=== PATIENT | female | born 1935 | race Caucasian/White ===

== ENCOUNTER 2017-02-23 20:54 | Emergency (ER) | payer MEDICARE, BC ==
[2017-02-23 21:05] VITALS: BP 101/73
== END 2017-02-24 | disposition left against medical advice (07) ==
LOC: ED 20:54
DX: R07.9 Chest pain, unspecified (principal); Z53.21 Procedure and treatment not carried out due to patient leaving prior to being seen by health care provider

== ENCOUNTER 2017-03-13 16:43 | Emergency (ER) | payer MEDICARE, BC ==
[2017-03-13 18:55] LABS: Hematocrit 38 % (35-47); Hemoglobin 12.3 g/dl (12.0-16.0); Mean Corpuscular HGB Conc 33 g/dl (31-36); Mean Corpuscular Hemoglobin 27 pg (27-31); Mean Corpuscular Volume 83 fL (80-97); Mean Platelet Volume 8 um3 (7.4-10.4); Red Cell Distribution Width 16 % (10.5-15); White Blood Count 6.7 10^3/ul (3.5-10.8)
[2017-03-13 19:10] LABS: Troponin I 0.01 ng/mL (<0.04)
[2017-03-13 19:11] LABS: Albumin 3.5 g/dL (3.2-5.2); BUN/Creatinine Ratio 10.6 (8-20); EGFR African American 59.7 (>60); EGFR Non-African American 46.4 (>60); Globulin 2.6 g/dL (2-4); Magnesium 2.3 mg/dL (1.9-2.7); Potassium 3.8 mmol/L (3.5-5.0); Total Bilirubin 0.5 mg/dL (0.2-1.0); Total Protein 6.1 g/dL (6.4-8.9)
[2017-03-13 19:46] LABS: TSH (Thyroid Stimulating Horm) 1.48 mcIU/mL (0.34-5.60)
[2017-03-13 20:40] VITALS: BP 135/65
--- NOTE | 2017-03-13 22:57 | ED ---
Fly Lares Alfonso, scribed for Janes Ruiz MD on 03/13/17 at 1929 . Syncope/Near Syncope - HPI Summary HPI Summary: This patient is a 62 year old F presenting to [facility] accompanied by with a chief complaint of syncope that occurred today. The patients reports that the pt was taking a shower and when he entered the bathroom he found her leaning against the sink and hanging on for her life. The patient was unable to sit on the toilet and reportedly rolled her eyes to the back of her head. The patient rates the pain 0/10 in severity. Symptoms aggravated by nothing. Symptoms alleviated by spontaneous resolution. Patients reports her inability to stand. The patient denies abdominal pain and the patients denies observing any physical trauma or pain. - History Of Current Complaint Chief Complaint: EDSyncope Time Seen by Provider: 03/13/17 17:51 Hx Obtained From: Patient, Family/[employer] - Onset/Duration: Sudden Onset, Resolved Context: Witnessed, Loss Of Consciousness Activity At Onset: Other - Unconscious Associated Head Trauma: No Aggravating Factor(s): Nothing Alleviating Factor(s): Spontaneous Resolution Associated Signs And Symptoms: Other - Patients reports her inability to stand and usual poor memory. The patient denies abdominal pain and the patients denies observing any physical trauma or pain. - Allergies/Home Medications Allergies/Adverse Reactions: Allergies Allergy/AdvReac Type Severity Reaction Status Date / Time Amlodipine [From Norvasc] Allergy Unknown Flushing Verified 02/23/17 21:03 Atorvastatin [From Lipitor] Allergy Unknown Muscle Ache Verified 02/23/17 21:03 Hydrochlorothiazide Allergy Unknown See Comment Verified 02/23/17 21:03 Labetalol Allergy Unknown Unknown Verified 02/23/17 21:03 Reaction Details Niacin Allergy Unknown Dizziness Verified 02/23/17 21:03 Penicillins [PCN] Allergy Unknown Unknown Verified 02/23/17 21:03 Reaction Details Simvastatin [From Zocor] Allergy Unknown See Comment Verified 02/23/17 21:03 bactrim ds Allergy Unknown Unknown Uncoded 02/23/17 21:03 Reaction Details PMH/Surg Hx/FS Hx/Imm Hx Endocrine/Hematology History: Reports: Hx Thyroid Disease Cardiovascular History: Reports: Hx Coronary Artery Disease - CHOLESTEROL CONTROL WITH MEDICATION, Hx Hypercholesterolemia, Hx Hypertension GI History: Reports: Hx Gastroesophageal Reflux Disease - ON MEDICATION, Hx Hiatal Hernia, Other GI Disorders - HISTORY OF CONSTIPATION, TAKING METAMUSCIL Musculoskeletal History: Reports: Hx Arthritis - OSTEOARTHRITIS RIGHT HIP Sensory History: Reports: Hx Cataracts, Hx Contacts or Glasses - READING GLASSES Denies: Hx Hearing Aid Opthamlomology History: Reports: Hx Cataracts, Hx Contacts or Glasses - READING GLASSES Neurological History: Reports: Other Neuro Impairments/Disorders - short term memory issues from premarin cream - Cancer History Hx Chemotherapy: - BILATERAL - Surgical History Surgery Procedure, Year, and Place: 2002 PROLAPSE BLADDER REPAIR, [facility] [place]. 2003 CATARACT SURGERY WITH IOL IMPLANT, [facility] [place]. TONSILLECTOMY A CHILD Hx Anesthesia Reactions: No Infectious Disease History: No Infectious Disease History: Denies: Traveled Outside the [place] in Last 30 Days - Family History Known Family History: Positive: Other - Father had CAD, Mother had Cancer - Social History Alcohol Use: None Substance Use Type: Reports: None Smoking Status (MU): Never Smoked Tobacco Review of Systems Negative: Fever Negative: Abdominal Pain Positive: Other - Unable to stand, negative physical trauma Neurological: Other - Poor memory (baseline) Positive: Syncope All Other Systems Reviewed And Are Negative: Yes Physical Exam - Summary Physical Exam Summary: Appearance: Well-appearing, no pain distress Skin: Warm, dry, color reflects adequate perfusion Head/face: Nml head/face Eyes: Nml eyes ENT: Nml ENT Neck: Supple, non-tender Respiratory: CTA, breath sound present Cardiovascular: RRR Abdomen: Abd soft, non-tender, Bowel: Bowel sounds present Musculoskeletal: Nml musculoskeletal Neurological: Nml neuro, sensory/motor intact, A&Ox3, CN Intact II-III Psychiatric: Nml psychiatric, affect/mood appropriate Triage Information Reviewed: Yes Vital Signs On Initial Exam: Initial Vitals Temp Pulse Resp BP Pulse Ox 97.9 F 62 17 116/68 98 03/13/17 16:48 03/13/17 16:48 03/13/17 16:48 03/13/17 16:48 03/13/17 16:48 Vital Signs Reviewed: Yes - [place] Coma Scale Coma Scale Total: 15 Diagnostics - Vital Signs Vital Signs Temp Pulse Resp BP Pulse Ox 03/13/17 18:20 98 03/13/17 18:18 5 03/13/17 16:48 97.9 F 62 17 116/68 98 - Laboratory Lab Results: Lab Results 03/13/17 03/13/17 03/13/17 Range/Units 18:43 18:43 18:43 WBC 6.7 (3.5-10.8) 10^3/ul RBC 4.60 (4.0-5.4) 10^6/ul Hgb 12.3 (12.0-16.0) g/dl Hct 38 (35-47) % MCV 83 (80-97) fL MCH 27 (27-31) pg MCHC 33 (31-36) g/dl RDW 16 H (10.5-15) % Plt Count 195 (150-450) 10^3/ul MPV 8 (7.4-10.4) um3 Neut % (Auto) 73.0 (38-83) % Lymph % (Auto) 20.0 L (25-47) % [place] % (Auto) 5.3 (1-9) % Eos % (Auto) 1.1 (0-6) % Baso % (Auto) 0.6 (0-2) % Absolute Neuts (auto) 4.9 (1.5-7.7) 10^3/ul Absolute Lymphs (auto) 1.3 (1.0-4.8) 10^3/ul Absolute Monos (auto) 0.4 (0-0.8) 10^3/ul Absolute Eos (auto) 0.1 (0-0.6) 10^3/ul Absolute Basos (auto) 0 (0-0.2) 10^3/ul Absolute Nucleated RBC 0.01 10^3/ul Nucleated RBC % 0.1 Sodium 139 (133-145) mmol/L Potassium 3.8 (3.5-5.0) mmol/L Chloride 109 (101-111) mmol/L Carbon Dioxide 23 (22-32) mmol/L Anion Gap 7 (2-11) mmol/L BUN 12 (6-24) mg/dL Creatinine 1.13 H (0.51-0.95) mg/dL Est GFR ( Amer) 59.7 (>60) Est GFR (Non-Af Amer) 46.4 (>60) BUN/Creatinine Ratio 10.6 (8-20) Glucose 95 (70-100) mg/dL Lactic Acid 1.3 (0.5-2.0) mmol/L Calcium 9.0 (8.6-10.3) mg/dL Magnesium 2.3 (1.9-2.7) mg/dL Total Bilirubin 0.50 (0.2-1.0) mg/dL AST 12 L (13-39) U/L ALT 16 (7-52) U/L Alkaline Phosphatase 98 (34-104) U/L Troponin I 0.01 (<0.04) ng/mL Total Protein 6.1 L (6.4-8.9) g/dL Albumin 3.5 (3.2-5.2) g/dL Globulin 2.6 (2-4) g/dL Albumin/Globulin Ratio 1.3 (1-3) TSH Pending Result Diagrams: 03/13/17 18:43 03/13/17 18:43 Lab Statement: Any lab studies that have been ordered have been reviewed, and results considered in the medical decision making process. - EKG 1859 Cardiac Rate: Bradycardia - 56 bpm EKG Rhythm: Sinus Bradycardia EKG Interpretation: NAC Course/Dx Course Of Treatment: Ms. Villa presented after what sounded like a vagal ssyncopal event after a shower. She felt fine here and was monitored while her labs were checked. Everything was normal and they elected to go home rather than stay the night on a monitored bed. - Diagnoses Provider Diagnoses: Vasovagal syncope Discharge - Discharge Plan Condition: Stable Disposition: HOME Patient Education Materials: Syncope (ED) Referrals: Rene Correia MD [Primary Care Provider] - 3 Days Additional Instructions: RETURN TO THE EMERGENCY DEPARTMENT FOR CHANGING OR WORSENING SYMPTOMS. The documentation as recorded by the Fly birch Alfonso accurately reflects the service I personally performed and the decisions made by me, Janes Ruiz MD.
== END 2017-03-13 20:50 | disposition home or self-care (01) ==
LOC: ED 16:43
DX: R55 Syncope and collapse (principal); E07.9 Disorder of thyroid, unspecified; I25.10 Atherosclerotic heart disease of native coronary artery without angina pectoris; I10 Essential (primary) hypertension; K21.9 Gastro-esophageal reflux disease without esophagitis
CPT/HCPCS: 36415; 80053; 83605; 83735; 84443; 84484; 85025; 93005

== ENCOUNTER 2018-05-26 21:33 | Observation (INO) | payer MEDICARE, BC ==
[2018-05-26] MEDS ORDERED: NS 0.9% 1000 ML** 1,000 ML IV.FLUID IV ONE (22:04)
[2018-05-26] MEDS ORDERED: Acetaminophen TAB* 325 MG PO ONE (22:05)
--- NOTE | 2018-05-26 22:14 | ED ---
Complex/Multi-Sys Presentation - HPI Summary HPI Summary: This patient is an 82 year old F brought in by ambulance to [facility] accompanied by family with a chief complaint of weakness that began this morning. The patient rates the pain 0/10 in severity. Symptoms aggravated by nothing. Symptoms alleviated by nothing. Per family, patient has baseline confusion due to dementia. Per family, patient has also fallen on her right side prior to arrival. - History Of Current Complaint Chief Complaint: EDWeakness Time Seen by Provider: 05/26/18 21:36 Hx Obtained From: Patient Onset/Duration: Sudden Onset, Lasting Hours, Still Present Timing: Constant Severity Currently: Mild Severity Initially: Mild Aggravating Factor(s): Nothing Alleviating Factor(s): Nothing - Allergies/Home Medications Allergies/Adverse Reactions: Allergies Allergy/AdvReac Type Severity Reaction Status Date / Time amlodipine [From Norvasc] Allergy Flushing Verified 05/26/18 22:57 atorvastatin [From Lipitor] Allergy Muscle Ache Verified 05/26/18 22:57 hydrochlorothiazide Allergy See Comment Verified 05/26/18 22:57 labetalol Allergy Unknown Verified 05/26/18 22:57 Reaction Details niacin Allergy Dizziness Verified 05/26/18 22:57 Penicillins Allergy Unknown Verified 05/26/18 22:57 Reaction Details simvastatin [From Zocor] Allergy See Comment Verified 05/26/18 22:57 bactrim ds Allergy Unknown Unknown Uncoded 05/26/18 22:57 Reaction Details Home Medications: Home Medications Aspirin [Aspirin Childrens 81 MG] 81 mg PO DAILY 05/26/18 [History Confirmed 02/03] Donepezil TAB* [Aricept 5 MG TAB*] 10 mg PO DAILY 05/26/18 [History Confirmed ] Esomeprazole Magnesium [Nexium 24Hr] 20 mg PO DAILY 05/26/18 [History Confirmed 05/26/18] Levothyroxine Sodium 75 mcg PO DAILY 05/26/18 [History Confirmed 05/26/18] Memantine HCl [Memantine HCl ER] 28 mg PO DAILY 05/26/18 [History Confirmed 02/03] Polyethylene Glycol 3350 [Miralax] 17 gm PO DAILY 05/26/18 [History Confirmed ] Rosuvastatin Calcium [Crestor] 5 mg PO DAILY 05/26/18 [History Confirmed ] Telmisartan 80 mg PO DAILY 05/26/18 [History Confirmed 05/26/18] hydrALAZINE TAB* [Apresoline TAB*] 25 mg PO TID 05/26/18 [History Confirmed 02/03] PMH/Surg Hx/FS Hx/Imm Hx Previously Healthy: No Endocrine/Hematology History: Reports: Hx Thyroid Disease Cardiovascular History: Reports: Hx Coronary Artery Disease - CHOLESTEROL CONTROL WITH MEDICATION, Hx Hypercholesterolemia, Hx Hypertension GI History: Reports: Hx Gastroesophageal Reflux Disease - ON MEDICATION, Hx Hiatal Hernia, Other GI Disorders - HISTORY OF CONSTIPATION, TAKING METAMUSCIL Musculoskeletal History: Reports: Hx Arthritis - OSTEOARTHRITIS RIGHT HIP Sensory History: Reports: Hx Cataracts, Hx Contacts or Glasses - READING GLASSES Denies: Hx Hearing Aid Opthamlomology History: Reports: Hx Cataracts, Hx Contacts or Glasses - READING GLASSES Neurological History: Reports: Other Neuro Impairments/Disorders - short term memory issues from premarin cream - Cancer History Hx Chemotherapy: - BILATERAL - Surgical History Surgery Procedure, Year, and Place: 2002 PROLAPSE BLADDER REPAIR, [facility] [place]. 2002 CATARACT SURGERY WITH IOL IMPLANT, [facility] [place]. TONSILLECTOMY A CHILD Hx Anesthesia Reactions: No Infectious Disease History: No Infectious Disease History: Denies: Traveled Outside the [place] in Last 30 Days - Family History Known Family History: Positive: Other - Father had CAD, Mother had Cancer - Social History Occupation: Retired Lives: With Family Alcohol Use: None Hx Substance Use: No Substance Use Type: Reports: None Hx Tobacco Use: No Smoking Status (MU): Never Smoked Tobacco Review of Systems Negative: Abdominal Pain Positive: Weakness All Other Systems Reviewed And Are Negative: Yes Physical Exam - Summary Physical Exam Summary: VITAL SIGNS: Reviewed. GENERAL: Patient is a well-developed and nourished female who is lying comfortable in the stretcher. Patient is not in any acute respiratory distress. HEAD AND FACE: No signs of trauma. No ecchymosis, hematomas or skull depressions. No sinus tenderness. EYES: PERRLA, EOMI x 2, No injected conjunctiva, no nystagmus. EARS: Hearing grossly intact. Ear canals and tympanic membranes are within normal limits. MOUTH: Oropharynx within normal limits. NECK: Supple, trachea is midline, no adenopathy, no JVD, no carotid bruit, no c- spine tenderness, neck with full ROM. CHEST: Symmetric, no tenderness at palpation LUNGS: Clear to auscultation bilaterally. No wheezing or crackles. CVS: Regular rate and rhythm, S1 and S2 present, no murmurs or gallops appreciated. ABDOMEN: Soft, non-tender. No signs of distention. No rebound no guarding, and no masses palpated. Bowel sounds are normal. EXTREMITIES: FROM in all major joints, no edema, no cyanosis or clubbing. NEURO: Alert, not answering questions. Doesnt follow exams. Grossly nonfocal SKIN: Dry and warm Triage Information Reviewed: Yes Vital Signs On Initial Exam: Initial Vitals Temp Pulse Resp BP Pulse Ox 100.4 F 95 16 134/68 94 05/26/18 21:40 05/26/18 21:40 05/26/18 21:40 05/26/18 21:40 05/26/18 21:40 Vital Signs Reviewed: Yes Diagnostics - Vital Signs Vital Signs Temp Pulse Resp BP Pulse Ox 05/26/18 22:00 97 19 93 05/26/18 21:43 98 20 134/68 94 05/26/18 21:40 100.4 F 102 23 134/68 96 - Laboratory Result Diagrams: 05/26/18 21:32 05/26/18 21:32 Lab Statement: Any lab studies that have been ordered have been reviewed, and results considered in the medical decision making process. - Radiology Chest XR Radiology Interpretation Completed By: ED Physician Summary of Radiographic Findings: CXR reveals, per ED physician, no acute process. - EKG 2251 Cardiac Rate: NL EKG Rhythm: Sinus Rhythm - 98 BPM Summary of EKG Findings: An EKG taken at 2251 reveals normal sinus rhythm at 98 BPM with normal axis, normal intervals, and no ischemic changes. Re-Evaluation - Re-Evaluation First Eval Re-Evaluation Time: 23:09 Change: Unchanged Comment: Discussed results and plan of care with patient and family. The patient s communicated that she was not able to get out of the car at 1700 today, and the patient was weak and fell onto her right side out of a chair. Complex Multi-Symp Course/Dx Course Of Treatment: This patient is an 82 year old F brought in by ambulance to [facility] accompanied by family with a chief complaint of weakness that began this morning. Physical Exam Findings: Alert, not answering questions. Doesnt follow exams. Grossly nonfocal. An EKG taken at 2251 reveals normal sinus rhythm at 98 BPM with normal axis, normal intervals, and no ischemic changes. CXR reveals, per ED physician, no acute process. Bloodwork and UA obtained. In the ED course the patient was given acetaminophen, levofloxacin, and fluids. Consult with Dr. Prince (hospitalist) at 2310. He agrees to admit the patient for further evaluation. The patient is agreeable with this plan. - Diagnoses Provider Diagnoses: UTI (urinary tract infection) - Physician Notifications Discussed Care Of Patient With: Mirza Prince Time Discussed With Above Provider: 23:10 Instructed by Provider To: Other - Consult with Dr. Prince (hospitalist) at 2310. He agrees to admit the patient for further evaluation. Discharge - Sign-Out/Discharge Documenting (check all that apply): Patient Departure - Admit to [facility] [place] - Discharge Plan Condition: Stable Disposition: ADMITTED TO [facility] - Attestation Statements Document Initiated by Scribe: Yes Documenting Scribe: Marlene Baig Provider For Whom Ehsan is Documenting (Include Credential): Dr. Pushpa Baires MD Scribe Attestation: I, Marlene Baig, scribed for Dr. Pushpa Baires MD on 05/26/18 at 2315. Status of Scribe Document: Ready
[2018-05-26 22:32] LABS: ABS Basophils 0 10^3/ul (0-0.2); ABS Eosinophils 0 10^3/ul (0-0.6); ABS Lymphocytes 0.5 10^3/ul (1.0-4.8); ABS Monocytes 0.4 10^3/ul (0-0.8); ABS Neutrophils 6.4 10^3/ul (1.5-7.7); ABS Nucleated RBC 0 10^3/ul; Eosinophil % 0.1 %; Hematocrit 39 % (35-47); Hemoglobin 12.5 g/dl (12.0-16.0); Lymphocyte % 6.5 %; Mean Corpuscular HGB Conc 32 g/dl (31-36); Mean Corpuscular Hemoglobin 27 pg (27-31); Mean Corpuscular Volume 82 fL (80-97); Mean Platelet Volume 7.9 fL (7.4-10.4); Nucleated Red Blood Cells % 0.1; Platelet Count 215 10^3/ul (150-450); Red Blood Count 4.73 10^6/ul (4.00-5.40); Red Cell Distribution Width 16 % (10.5-15); White Blood Count 7.3 10^3/ul (3.5-10.8)
[2018-05-26 22:41] LABS: Activated Partial Thrombo Time 27.7 seconds (26.0-36.3); INR 0.96 (0.77-1.02)
[2018-05-26 22:50] LABS: Albumin 4.1 g/dL (3.2-5.2); Albumin/Globulin Ratio 1.8 (1-3); BUN/Creatinine Ratio 14.5 (8-20); C Reactive Protein 9.63 mg/L (<8.01); Calcium 9.3 mg/dL (8.6-10.3); EGFR African American 53.9 (>60); EGFR Non-African American 44.5 (>60); Globulin 2.3 g/dL (2-4); Potassium 4.2 mmol/L (3.5-5.0); Total Bilirubin 0.5 mg/dL (0.2-1.0); Total Protein 6.4 g/dL (6.4-8.9)
[2018-05-26 22:52] LABS: Troponin I 0.01 ng/mL (<0.04)
[2018-05-26 23:04] LABS: Urine Appearance Cloudy; Urine Bacteria 1+ (Absent); Urine Bilirubin Negative (Negative); Urine Blood Negative (Negative); Urine Color Amber; Urine Glucose Negative (Negative); Urine Ketones Negative (Negative); Urine Nitrite Negative (Negative); Urine Protein 1+(30 mg/dL) (Negative); Urine Red Blood Cell Trace(0-2/hpf) (Absent); Urine Specific Gravity 1.021 (1.010-1.030); Urine Urobilinogen Positive (Negative); Urine White Blood Cell 1+(6-10/hpf) (Absent)
[2018-05-26] MEDS ORDERED: Levofloxacin 500 MG IVPREMIX(* 500 MG/100 ML BAG IVPB ONE (23:06)
[2018-05-26 23:12] LABS: Influenza A Molecular NEGATIVE (Negative); Influenza B Molecular NEGATIVE (Negative)
[2018-05-27 00:58] LABS: TSH (Thyroid Stimulating Horm) 0.57 mcIU/mL (0.34-5.60)
[2018-05-27] MEDS ORDERED: cefTRIAXone VIAL(*) 500 MG in NS 0.9% 50 ML* 50 ML IVPB SCH (02:00)
[2018-05-27] MEDS ORDERED: Levothyroxine TAB* 75 MCG TAB PO SCH (06:00)
--- NOTE | 2018-05-27 06:31 | HP ---
HISTORY AND PHYSICAL: DATE OF ADMISSION: 05/26/18 ADMITTING PROVIDER: Mirza Prince MD. PRIMARY CARE PROVIDER: Rene Correia MD. OUTPATIENT PRECISION HONER: Dr. Frazier. OUTPATIENT NEUROLOGIST: Dr. Bruner. CHIEF COMPLAINT: Fall, generalized weakness, fevers, and urinary incontinence. HISTORY OF PRESENT ILLNESS: Bonifacio Villa is an 82-year-old female with past medical history of Alzheimer's dementia, myocardial infarction, hypertension, hypothyroidism, who the day of admission missed her 2-hour usual afternoon nap and at 5 p.m. was unable to get out of the car unassisted. She had also been incontinent of urine near the bed, which is very unusual for her. Her Joce had to help her to walk on occasion. She then was sitting in a chair and eventually fell over to the side out of the chair. She then, with some assistance from Joce, went to the rest room and was found to be incontinent of urine again. Ambulance was called. Here, she was noted to have a fever of 100.4 rectally and she had tachycardia initially to 102. Given her altered mental status and eventual urinalysis, which was slightly positive with 1+ bacteria, 1+ WBCs, she was referred to hospitalist service for admission for suspected UTI, [id number] confusion, generalized weakness and sepsis. She had a chest x-ray which preliminary read is pending, but no infiltrates noted. She is a very poor historian even at baseline, oriented only to her first name but not last name, does not know the year at baseline. There has been no cough , chest pain, shortness of breath, wheezing, headaches, neck stiffness. Flu was negative here. She was started on Levaquin in the ED. PAST MEDICAL HISTORY: Myocardial infarction, severe Alzheimer's dementia, hypertension, hypothyroidism, and left patellar fracture. ALLERGIES: AMLODIPINE (flushing), ATORVASTATIN (muscle ache), HYDROCHLOROTHIAZIDE (electrolyte disturbance ultimately causing cardiac arrest) , LABETALOL, NIACIN and PENICILLIN (unknown), BACTRIM (unknown), SIMVASTATIN ( rhabdomyolysis weakness). SOCIAL HISTORY: She is currently retired/disabled; I think formerly a nurse. Joce Villa is her medical surrogate. He desires her to be a full code. Denies current smoking, alcohol, or drug use currently. FAMILY HISTORY: Father of heart troubles. Mother of cancer of the throat and was a heavy smoker and in year 1978. REVIEW OF SYSTEMS: Complete 14-point review of systems negative as except as per HPI and limited by the patient being poor historian relying on Joce for most details. PHYSICAL EXAMINATION GENERAL APPEARANCE: No acute distress. VITAL SIGNS: Temperature 100.4, pulse rate 102, respiratory rate 16, satting 94 % on room air, blood pressure 134/68. HEENT: Normocephalic, atraumatic. Pupils equally round and reactive light. Extraocular motions intact. No scleral icterus. NECK: Supple. LUNGS: Clear to auscultation bilaterally with no wheezing, rales, or rhonchi. CARDIOVASCULAR: Regular rate and rhythm with no murmurs, rubs, or gallops. ABDOMEN: Soft, nontender, nondistended. EXTREMITIES: Warm and well perfused. No peripheral edema. NEUROLOGIC: Cranial nerves II through XII are intact. Hip flexion at least 4/ 5 bilaterally. Not following commands in terms of plantar flexion. SKIN: No lesions or rashes. DIAGNOSTIC STUDIES/LAB DATA: Labs: White count 7.3, hemoglobin 12.5, hematocrit 39, platelets 215. INR 0.96. Sodium 139, potassium 4.2, chloride 107, BUN 17, creatinine 1.17, glucose 129, lactic acid 1.6. Total bili 0.5, AST 16, ALT 11, alk phos 138. CRP 9.63, troponin 0.01. TSH 0.57. Albumin 4.1. Urinalysis 1+ protein, 1+ WBC, 1+ bacteria, negative leukocyte esterase, and negative nitrites. Influenza A and B were negative. Imaging: Chest x-ray, official read pending, but no acute process per my read. EKG, normal sinus rhythm. Inferior Q-waves in III. Poor R-wave progression. No ST elevations or depression. Normal axis. QTc 464. ASSESSMENT AND PLAN: Bonifacio Villa is an 82-year-old female, past medical history of severe Alzheimer's dementia, presenting with fever, tachycardia, acute on chronic altered mental status, urinary incontinence at home and slightly positive urinalysis suspicious for potential urinary tract infection causing systemic inflammatory response syndrome/sepsis. She is status post Levaquin in the ED. She has penicillin and Bactrim allergies. She is being admitted to observation status as she is clearly off her baseline mentally. She is usually able to ambulate upstairs without any assistive devices. Physical therapy will be ordered. We will give her ceftriaxone here. Followup urine culture. She can likely go home tomorrow after physical therapy evaluation. , Joce, is retired and is basically her 24x7 caregiver at home. I doubt that they would want to go to a fpc facility. For her hypertension, we will continue her telmisartan 80 mg daily and hydralazine 25 mg in the a.m. and at night; for her hypothyroidism, continue 75 mcg of levothyroxine; for her Alzheimer's dementia, continue Namenda and she is status post sepsis fluid bolus in the ED. Follow up blood cultures. She can eat a heart healthy diet. She is a full code. [id number] #: [id number] MTDD
[2018-05-27 07:48] LABS: ABS Basophils 0 10^3/ul (0-0.2); ABS Eosinophils 0 10^3/ul (0-0.6); ABS Lymphocytes 1.6 10^3/ul (1.0-4.8); ABS Monocytes 0.5 10^3/ul (0-0.8); ABS Neutrophils 3.7 10^3/ul (1.5-7.7); ABS Nucleated RBC 0 10^3/ul; Eosinophil % 0.5 %; Hematocrit 34 % (35-47); Hemoglobin 11.3 g/dl (12.0-16.0); Lymphocyte % 27.8 %; Mean Corpuscular HGB Conc 33 g/dl (31-36); Mean Corpuscular Hemoglobin 27 pg (27-31); Mean Corpuscular Volume 82 fL (80-97); Mean Platelet Volume 8.2 fL (7.4-10.4); Nucleated Red Blood Cells % 0; Platelet Count 161 10^3/ul (150-450); Red Cell Distribution Width 16 % (10.5-15); White Blood Count 5.8 10^3/ul (3.5-10.8)
[2018-05-27 08:29] LABS: Calcium 8.8 mg/dL (8.6-10.3); Potassium 4.1 mmol/L (3.5-5.0)
[2018-05-27 08:35] LABS: EGFR African American 64.6 (>60); EGFR Non-African American 53.3 (>60)
[2018-05-27] MEDS ORDERED: Pantoprazole TAB * 40 MG TAB PO SCH (09:00)
[2018-05-27] MEDS ORDERED: Aspirin 81 mg CHEW TAB* 81 MG TAB.CHEW PO SCH (09:00)
[2018-05-27] MEDS ORDERED: Enoxaparin(*) 40 MG/0.4 ML SYR SUBCUT SCH (09:00)
[2018-05-27] MEDS ORDERED: Memantine XR CAP* 28 MG CAP.XR PO SCH (09:00)
[2018-05-27] MEDS ORDERED: hydrALAZINE TAB* 25 MG PO SCH (09:00)
[2018-05-27] MEDS ORDERED: Donepezil TAB* 5 MG PO SCH (09:00)
[2018-05-27] MEDS ORDERED: Polyethylene Glycol 3350* 17 GM PACKET PO SCH (09:00)
[2018-05-27 13:09] VITALS: BP 131/62
[2018-05-27] MEDS: Losartan TAB* 25 MG PO SCH ×2 (13:14→13:56)
[2018-05-27] MEDS ORDERED: Ezetimibe TAB* 10 MG PO SCH (18:00)
--- NOTE | 2018-05-27 22:06 | DS ---
CC: Dr. Rene Correia * DISCHARGE SUMMARY: DATE OF ADMISSION: 05/26/18 DATE OF DISCHARGE: 05/27/18 PRIMARY CARE PROVIDER: Dr. Rene Correia. MY ATTENDING WHILE IN THE HOSPITAL: Dr. Nora Abbasi.* (DICTATED BY SOTERO PRUITT) PRIMARY DISCHARGE DIAGNOSES: 1. Urinary tract infection. 2. Increased weakness. 3. Altered mental status. SECONDARY DISCHARGE DIAGNOSES: 1. Severe Alzheimer dementia. 2. History of myocardial infarction. 3. Hypertension. 4. Hypothyroidism. STUDIES DONE WHILE IN THE HOSPITAL: Chest x-ray from 05/26/18 read as no evidence for acute disease. Electrocardiogram shows normal sinus rhythm, no ST segment changes, normal axis, no hypertrophy or enlargement, poor quality study compared to previous exam. No significant changes. MEDICATIONS AT DISCHARGE: 1. Donepezil 10 mg p.o. daily. 2. Telmisartan 80 mg p.o. daily. 3. Memantine 20 mg p.o. daily. 4. Esomeprazole 20 mg p.o. daily. 5. Aspirin 81 mg p.o. daily. 6. Hydralazine 25 mg p.o. t.i.d. 7. Levothyroxine 75 mcg p.o. daily. 8. Polyethylene glycol 17 g p.o. daily. 9. Ezetimibe 10 mg p.o. q.p.m. New Medication: Cefpodoxime 200 mg p.o. q.12 hours x12. HOSPITAL COURSE: This is a brief summary of the patient's presentation. For more details, please see history and physical from Dr. Mirza Prince on 05/26/18. In brief, patient is an 82-year-old female with severe Alzheimer dementia who was in her normal state of health when she began to act abnormally, including having urinary incontinence and weakness. She came to the emergency department and had a slight fever, slight tachycardia. The patient had slightly positive urinalysis as well. The patient met sepsis criteria, was given a bolus and ceftriaxone, and was admitted to the hospital for observation. The patient had no white count, no new anemia, a slightly elevated creatinine though consistent with the patient's baseline, negative lactic acid with slightly elevated CRP, and urine showing positive white blood cells and bacteria. The patient felt better in the morning and was able to ambulate several times to bathroom and back and then around the unit entirely with physical therapy. The patient had no other complaints or vital sign abnormalities. The patient was at her baseline cognitively. The patient did not have acute PT needs. The patient was stable enough for discharge on 05/27/18 with 24-hour care from her at home. PHYSICAL EXAM AT DISCHARGE: General: The patient is an 82-year-old female who appears her stated age and sitting comfortably in bed, in no acute distress. HEENT: Head normocephalic, atraumatic. Sclerae anicteric. No conjunctival injection. Nasal mucosa moist. Oral mucosa moist. No pharyngeal erythema, discharge, or exudate. Neck: Supple, nontender. No lymphadenopathy. No carotid bruit auscultated. No JVD. Cardiac: Regular rate and rhythm. No clicks, murmurs, gallops, or rubs. Pulses 2+ in her bilateral dorsalis pedis, posterior tibialis, and radial areas. Respiratory: Clear to auscultation bilaterally. No wheezes, rales, or rhonchi. Good air exchange bilaterally. Abdomen: Soft, nontender, nondistended. Bowel sounds present, normoactive in all 4 quadrants. No hepatosplenomegaly. No abdominal bruits auscultated. No hepatojugular reflux. Genitourinary: No suprapubic or CVA tenderness. Skin: Clean, dry, and intact. No rash. Neuro: Alert, oriented to self. No focal deficits. Psychiatric: Pleasant and cooperative. Vital Signs: At time of discharge, temperature 98.4, pulse rate 87, respiratory rate 16, oxygen saturation 96% on room air, blood pressure 131/62. DISCHARGE PLAN: The patient will be discharged to home. The patient will be on a 1 week course of cephalosporin therapy with one dose of ceftriaxone in the hospital and followed by 1 week of cefpodoxime. The patient should be encouraged to take in oral input as she was likely dehydrated on admission. The patient should follow up with primary care provider within 1 week for general medical management. The patient will have help from her at home 24 hours. Patient should return to hospital for alarming symptoms such as passing out, high fevers, inability to care for herself, or other alarming symptoms. The patient should have a heart healthy diet without caffeine and engage in activities as tolerated. TIME SPENT: Approximately 60 minutes were spent on discharge of this patient, 30 of which spent [id number] with the patient obtaining history and physical and discussing the treatment plan. SOTERO PRUITT [id number]/[facility] #: [id number] [place]
== END 2018-05-27 18:15 | disposition home or self-care (01) ==
LOC: ED 21:33 → MED 23:55
PROVIDERS: ADMIT Internal Medicine; ATTEND Internal Medicine
DX: N39.0 Urinary tract infection, site not specified (principal); R53.1 Weakness; R41.82 Altered mental status, unspecified; G30.9 Alzheimer's disease, unspecified; F02.80 Dementia in other diseases classified elsewhere, unspecified severity, without behavioral disturbance, psychotic disturbance, mood disturbance, and anxiety; F05 Delirium due to known physiological condition; I25.2 Old myocardial infarction; I10 Essential (primary) hypertension; E03.9 Hypothyroidism, unspecified; Z79.82 Long term (current) use of aspirin; Z88.0 Allergy status to penicillin
CPT/HCPCS: 36415; 71045; 80048; 80053; 81003; 81015; 83605; 84443; 84484; 85025; 85610; 85730; 86140; 87040; 87077; 87086; 87186; 93005; 96361; 96365; 96372; 99284; A9270-GY; G0378; G8978-GP-CH; G8979-GP-CH; G8980-GP-CH; J0696; J1650; J1956

== ENCOUNTER 2019-12-07 17:35 | Inpatient (IN) ==
[2019-12-07 18:44] LABS: ABS Eosinophils 0.1 10^3/ul (0-0.6); ABS Monocytes 0.5 10^3/ul (0-0.8); Eosinophil % 0.8 %; Hematocrit 37 % (35-47); Hemoglobin 12.1 g/dL (12.0-16.0); Lymphocyte % 15.7 %; Mean Corpuscular HGB Conc 32 g/dL (31-36); Mean Corpuscular Hemoglobin 27 pg (27-31); Mean Corpuscular Volume 84 fL (80-97); Mean Platelet Volume 8.2 fL (7.4-10.4); Platelet Count 205 10^3/uL (150-450); Red Blood Count 4.46 10^6 /uL (3.70-4.87); Red Cell Distribution Width 19 % (10-15); White Blood Count 6.6 10^3/uL (3.5-10.8)
[2019-12-07 19:02] LABS: Albumin 3.8 g/dL (3.2-5.2); Albumin/Globulin Ratio 1.4 (1-3); BUN/Creatinine Ratio 18.9 (8-20); Calcium 9.6 mg/dL (8.6-10.3); EGFR African American 56.9 (>60); EGFR Non-African American 47.1 (>60); Globulin 2.8 g/dL (2-4); Total Bilirubin 0.6 mg/dL (0.2-1.0); Total Protein 6.6 g/dL (6.4-8.9)
[2019-12-07 19:13] LABS: Potassium 4.7 mmol/L (3.5-5.0)
[2019-12-07 19:52] LABS: TSH Ultra Thyroid Stim Horm 19.07 mcIU/mL (0.34-5.60)
[2019-12-07 19:56] LABS: Free T4 0.88 ng/dL (0.61-1.12)
[2019-12-07] MEDS: Enoxaparin 40 MG/0.4 ML SYR SUBCUT SCH (22:45)
[2019-12-08 00:23] LABS: Urine Appearance Cloudy; Urine Bilirubin Negative (Negative); Urine Blood Negative (Negative); Urine Color Yellow; Urine Glucose Negative (Negative); Urine Ketones Negative (Negative); Urine Nitrite Positive (Negative); Urine Protein Negative (Negative); Urine Specific Gravity 1.006 (1.010-1.030); Urine Urobilinogen Negative (Negative)
[2019-12-08 00:45] LABS: Urine Bacteria 1+ (Absent); Urine Red Blood Cell Trace(0-2/hpf) (Absent); Urine White Blood Cell 1+(6-10/hpf) (Absent)
[2019-12-08] MEDS: hydrALAZINE 20 mg/ml 1 ML Vial IV IV SLOW PU PRN (03:38)
[2019-12-08] MEDS: Cephalexin SUSP ORALSYR 50 MG/ML PO SCH ×2 (18:14→19:20)
[2019-12-08] MEDS ORDERED: Nitrofurantoin (monohydrate/macrocrystals) 100 mg CAP PO SCH (21:00)
[2019-12-08] MEDS: Enoxaparin 40 MG/0.4 ML SYR SUBCUT SCH (21:03)
[2019-12-09] MEDS: Cephalexin SUSP ORALSYR 50 MG/ML PO SCH ×4 (08:49→20:21)
[2019-12-09] MEDS: Enoxaparin 40 MG/0.4 ML SYR SUBCUT SCH (20:20)
[2019-12-10] MEDS: Cephalexin SUSP ORALSYR 50 MG/ML PO SCH ×4 (08:57→20:11)
[2019-12-10] MEDS: Docusate LIQ 100 MG/10 ML UDC PO PRN (14:11)
[2019-12-10] MEDS: Enoxaparin 40 MG/0.4 ML SYR SUBCUT SCH (20:09)
[2019-12-11] MEDS: Docusate LIQ 100 MG/10 ML UDC PO PRN ×2 (09:34→22:11)
[2019-12-11] MEDS: Cephalexin SUSP ORALSYR 50 MG/ML PO SCH ×4 (09:34→22:14)
[2019-12-11] MEDS: Enoxaparin 40 MG/0.4 ML SYR SUBCUT SCH (22:17)
[2019-12-12] MEDS: Cephalexin SUSP ORALSYR 50 MG/ML PO SCH ×4 (10:38→21:06)
[2019-12-12] MEDS: Enoxaparin 40 MG/0.4 ML SYR SUBCUT SCH (21:07)
[2019-12-13] MEDS: Cephalexin SUSP ORALSYR 50 MG/ML PO SCH ×4 (08:46→21:22)
[2019-12-13] MEDS: Enoxaparin 40 MG/0.4 ML SYR SUBCUT SCH (20:40)
[2019-12-14] MEDS: Cephalexin SUSP ORALSYR 50 MG/ML PO SCH (07:56)
[2019-12-14 10:21] LABS: Mean Platelet Volume 8.2 fL (7.4-10.4); Platelet Count 224 10^3/uL (150-450)
[2019-12-14] MEDS: Enoxaparin 40 MG/0.4 ML SYR SUBCUT SCH (19:58)
[2019-12-15] MEDS: hydrALAZINE 20 mg/ml 1 ML Vial IV IV SLOW PU PRN (08:56)
[2019-12-15] MEDS: Enoxaparin 40 MG/0.4 ML SYR SUBCUT SCH (22:00)
[2019-12-16 13:29] VITALS: BP 123/55
== END 2019-12-16 13:00 | DRG 57 ==
LOC: ED 17:35 → MED 19:33
PROVIDERS: ADMIT Internal Medicine; ATTEND Internal Medicine